=== PATIENT | female | born 1975 | race African-American/Black ===

== ENCOUNTER 2019-01-11 23:48 | Emergency (ER) | payer OTHER ==
[2019-01-11 23:58] VITALS: BP 125/62; PULSE 74; TEMP 98.3; BMI 34.7
--- NOTE | 2019-01-12 00:12 | PDOC ---
History of Present Illness - General Chief Complaint: Headache Stated Complaint: GAXIOLA X4 DAYS Time Seen by Provider: 01/12/19 00:00 History Source: Patient Exam Limitations: No Limitations - History of Present Illness Initial Comments: 01/12/19 00:12 This is a 43-year-old female who comes in complaining of a headache 4 days. Patient has a history of similar headaches multiple times in the past and has had 2 and neurological evaluations for the headaches. Patient has been told they are stress type headache not a migraine-type headache. Patient said she took one ibuprofen yesterday evening and has had Excedrin Migraine a couple of times over the last 4 days. Otherwise patient is not taking any additional medication. Patient denies any nausea, photophobia, fever, chills, neck stiffness, sinus pain or any other symptoms. Allergies: as per nursing notes Past Medical History: none Social history: Lives with family. No smoking. No alcohol. No illicit drugs. Surgical history: None General: No fevers or chills, no weakness, no weight loss HEENT: No change in vision. No sore throat,. No ear pain CardioVascular: no chest discomfort. No shortness of breath Respiratory:No cough, or wheezing. Gastrointestinal: no nausea, vomiting, diarrhea or constipation, No rectal bleeding Genitourinary: No dysuria, hematuria, or frequency Musculoskeletal: No joint or muscle pain or swelling Neurologic: No headache, vertigo, dizziness or loss of consciousness Psychiatric: nor depression Skin: No rashes or easy bruising Endocrine: no increased thirst or abnormal weight change Allergic: no skin or latex allergy All other systems reviewed and normal GENERAL: The patient is awake, alert, and fully oriented, in no acute distress. HEAD: Normal with no signs of trauma. There is no tenderness on palpation of the sinuses, there is no meningeal signs and is supple. Funduscopic exam is normal EYES: Pupils equal, round and reactive to light, extraocular movements intact, sclera anicteric, conjunctiva clear. EXTREMITIES:atraumatic, Normal range of motion, no edema. NEUROLOGICAL: Normal speech, normal gait. PSYCH: Normal mood, normal affect. SKIN: Warm, Dry, normal turgor, no rashes or lesions noted. Assessment and plan: This is a 43-year-old female with a tension type headache. Patient given Toradol and Reglan and discharged home Past History - Past Medical History Allergies/Adverse Reactions: Allergies Allergy/AdvReac Type Severity Reaction Status Date / Time No Known Allergies Allergy Unverified 01/11/19 23:51 COPD: No Diabetes: Yes HTN: Yes Hypercholesterolemia: Yes - Suicide/Smoking/Psychosocial Hx Smoking History: Unknown if ever smoked Have you smoked in the past 12 months: No Number of Cigarettes Smoked Daily: 0 Information on smoking cessation initiated: No Hx Alcohol Use: No Drug/Substance Use Hx: No *Physical Exam - Vital Signs Last Vital Signs Temp Pulse Resp BP Pulse Ox 98.3 F 74 14 125/62 98 01/11/19 23:49 01/11/19 23:49 01/11/19 23:49 01/11/19 23:49 01/11/19 23:49 *DC/Admit/Observation/Transfer Diagnosis at time of Disposition: Headache Qualifiers: Headache type: unspecified Headache chronicity pattern: unspecified pattern Intractability: not intractable Qualified Code(s): R51 - Headache - Discharge Dispostion Disposition: HOME Condition at time of disposition: Good Decision to Admit order: No - Referrals - Patient Instructions Additional Instructions: You can take ibuprofen 600 mg alternated with acetaminophen 500 mg as often as every 3 hours for the pain.. Return to the emergency department immediately with ANY new, persistent or worsening symptoms. Continue any medications as previously prescribed by your physician. You should follow up with your primary doctor as soon as possible regarding today's emergency department visit. . Please make sure your doctor reviews the results of your emergency evaluation. Thank you for coming to the Emergency Department today for your care. It was a pleasure to see you today. Please note that your evaluation is INCOMPLETE until you follow-up with your doctor. - Post Discharge Activity
[2019-01-12] MEDS ORDERED: KETOROLAC TROMETHAMINE 60 MG/2 ML VIAL IM ONE (00:14)
[2019-01-12] MEDS ORDERED: METOCLOPRAMIDE HCL 10 MG TABLET (FP) PO ONE ×2 (00:14→00:29)
[2019-01-12] MEDS ORDERED: KETOROLAC TROMETHAMINE 30 MG/1 ML VIAL ONE (00:29)
== END 2019-01-12 00:46 | disposition home or self-care (01) ==
LOC: FER 23:48
PROC: 3E0233Z Introduction of Anti-inflammatory into Muscle, Percutaneous Approach (ICD-10-PCS; principal; 2019-01-11)
DX: R51 Headache (principal); I10 Essential (primary) hypertension; E11.9 Type 2 diabetes mellitus without complications; E78.00 Pure hypercholesterolemia, unspecified
CPT/HCPCS: 82962; 99282-25

== ENCOUNTER 2025-01-05 10:08 | Emergency (ER) | payer OTHER ==
[2025-01-05 10:23] VITALS: BP 173/104; PULSE 70; RESP 16; TEMP 97.3; BMI 29.1
[2025-01-05] MEDS ORDERED: IBUPROFEN 400 MG TABLET (FP) PO ONE (10:51)
[2025-01-05] MEDS ORDERED: ACETAMINOPHEN 325 MG TABLET (FP) ONE (10:51)
[2025-01-05] MEDS ORDERED: LIDOCAINE 5% TOPICAL PATCH ONE (10:52)
[2025-01-05] MEDS: IBUPROFEN 400 MG TABLET (FP) PO ONE (10:58)
[2025-01-05] MEDS: LIDOCAINE 5% TOPICAL PATCH TP ONE (10:58)
[2025-01-05] MEDS: ACETAMINOPHEN 325 MG TABLET (FP) PO ONE (10:59)
[2025-01-05] MEDS ORDERED: LIDOCAINE PATCH REMOVAL MC ONE (22:00)
== END 2025-01-05 11:16 | disposition home or self-care (01) ==
LOC: FER 10:08
DX: M54.50 Low back pain, unspecified (principal)
CPT/HCPCS: 99283-25